=== PATIENT | male | born 1940 | race Caucasian/White ===

== ENCOUNTER 2019-04-19 12:40 | Inpatient (IN) ==
[2019-04-19] MEDS ORDERED: ACETAMINOPHEN 325 MG TABLET PO PRN (12:47)
[2019-04-19] MEDS ORDERED: diphenhydrAMINE CAP 25 MG CAPSULE PO PRN (12:47)
[2019-04-19] MEDS ORDERED: BISACODYL 5 MG TABLET PO PRN (12:47)
[2019-04-19] MEDS ORDERED: ONDANSETRON 4 MG/2 ML VIAL IV PRN (12:47)
[2019-04-19] MEDS ORDERED: MORPHINE 4 MG/1 ML VIAL IV PRN (12:47)
[2019-04-19] MEDS ORDERED: POTASSIUM CHLORIDE 20 MEQ TABLET PO PRN (12:47)
[2019-04-19] MEDS ORDERED: MAGNESIUM SULF RIDER 2 GM in PREMIX 1 EACH IV PRN (12:47)
[2019-04-19] MEDS ORDERED: MAGNESIUM SULF RIDER 4 GM in PREMIX 1 EACH IV PRN (12:47)
[2019-04-19] MEDS ORDERED: ZALEPLON 5 MG CAPSULE PO PRN (12:47)
[2019-04-19] MEDS ORDERED: DOCUSATE SODIUM 100 MG CAPSULE PO PRN (12:47)
[2019-04-19] MEDS ORDERED: guaiFENesin/DM ER 600-30 MG TABLET PO PRN (12:47)
[2019-04-19 16:31] LABS: Basophils % 0.6 % (0.0-0.8); Eosinophils # 0.3 10*3/uL (0.0-0.87); Eosinophils % 3.9 % (0.00-10.9); Hematocrit 40.5 VOL% (42.0-52.0); Hemoglobin 12.2 GM/DL (14.0-18.0); Immature Granulocytes % 0.6 %; Immature Granulocytes Absolute 0.04 #; Lymphocytes # 1.1 10*3/uL (1.4-4.0); Lymphocytes % 15.3 % (21.2-54.2); Mean Corpuscular HGB Conc 30.1 GM/DL (32-36); Mean Corpuscular Volume 94.4 FL (87-102); Monocytes % 9.2 % (1.7-12.7); Neutrophils % 70.4 % (38.7-73.9); Platelet Count 204 T/CUMM (130-400); Red Blood Count 4.29 MC/CUMM (3.8-5.5); Red Cell Distribution Width 15.9 % (9.3-17.3); White Blood Count 7.1 T/CUMM (4-12)
[2019-04-19 16:48] LABS: Albumin 2.8 G/DL (3.4-5.0); Bilirubin,Total 0.5 MG/DL (0.2-1.0); Calcium 9.5 MG/DL (8.5-10.1); Osmolality,Calculated 282.3 MOS/KG (273-304); Total Protein 6.6 G/DL (6.4-8.3)
[2019-04-19 16:55] LABS: PT Patient Result 11.3 SECS
[2019-04-19] MEDS ORDERED: ceFAZolin 1,000 MG in SYRINGE 1 EACH IV ONE (17:17)
[2019-04-19] MEDS ORDERED: ceFAZolin 1,000 MG VIAL IRRIG ONE (17:17)
[2019-04-19] MEDS: ENOXAPARIN 40 MG/0.4 ML SYRINGE SUBCUT SCH (17:34)
[2019-04-19] MEDS: ALBUTEROL 2.5 MG/3 ML NEB RESP TX SCH (20:40)
[2019-04-19] MEDS: BUDESONIDE/FORMOTEROL 160-4.5 INHALER 6 GM INH SCH (21:39)
[2019-04-19] MEDS: METOPROLOL TARTRATE 25 MG TABLET PO SCH (21:40)
[2019-04-20 03:09] LABS: Basophils # 0.1 10*3/uL (0.0-0.2); Basophils % 0.8 % (0.0-0.8); Eosinophils # 0.5 10*3/uL (0.0-0.87); Eosinophils % 5.5 % (0.00-10.9); Hematocrit 36.1 VOL% (42.0-52.0); Immature Granulocytes % 0.5 %; Immature Granulocytes Absolute 0.04 #; Lymphocytes # 0.9 10*3/uL (1.4-4.0); Lymphocytes % 10.7 % (21.2-54.2); Mean Corpuscular HGB Conc 30.5 GM/DL (32-36); Mean Platelet Volume 9.3 FL (9.6-12.0); Monocytes % 9.2 % (1.7-12.7); Neutrophils % 73.3 % (38.7-73.9); Platelet Count 193 T/CUMM (130-400); Red Blood Count 3.84 MC/CUMM (3.8-5.5); White Blood Count 8.5 T/CUMM (4-12)
[2019-04-20 03:40] LABS: Osmolality,Calculated 285.3 MOS/KG (273-304); Thyroid Stimulating Hormone 4.72 uIU/ml (0.358-3.74)
[2019-04-20] MEDS: ALBUTEROL 2.5 MG/3 ML NEB RESP TX SCH (07:57)
[2019-04-20] MEDS ORDERED: ALBUTEROL 1.25 MG/3 ML NEB RESP TX PRN (08:02)
[2019-04-20] MEDS ORDERED: FUROSEMIDE 40 MG TABLET PO SCH (09:00)
[2019-04-20] MEDS ORDERED: LIDOCAINE 1% 20 ML VIAL ONE (10:37)
[2019-04-20] MEDS ORDERED: TISSUE ADHESIVE 1 EACH APPLICATOR TOP ONE (10:37)
[2019-04-20] MEDS ORDERED: HEPARIN/NACL 0.9% 2 UNITS/ML 500 ML IV ONE (10:37)
[2019-04-20] MEDS ORDERED: ceFAZolin 1,000 MG VIAL ONE (10:38)
[2019-04-20] MEDS ORDERED: MIDAZOLAM 2 MG/2 ML VIAL ONE (12:52)
[2019-04-20] MEDS ORDERED: PROPOFOL 200 MG/20 ML VIAL IV ONE (12:53)
[2019-04-20] MEDS ORDERED: GLYCOPYRROLATE 0.4 MG/2 ML VIAL ONE (12:53)
[2019-04-20] MEDS: METOPROLOL TARTRATE 25 MG TABLET PO SCH ×2 (15:32→21:30)
[2019-04-20] MEDS: ROSUVASTATIN 20 MG TABLET PO SCH (15:34)
[2019-04-20] MEDS: NICOTINE 14 MG/24 HR PATCH TRANSDERM SCH (15:34)
[2019-04-20] MEDS: ENOXAPARIN 40 MG/0.4 ML SYRINGE SUBCUT SCH (15:34)
[2019-04-20] MEDS: ASPIRIN EC 81 MG TABLET PO SCH (15:34)
[2019-04-20] MEDS: PANTOPRAZOLE 40 MG TABLET PO SCH (15:34)
[2019-04-20] MEDS: FUROSEMIDE 40 MG/4 ML VIAL IV SCH ×2 (15:35→18:21)
[2019-04-20] MEDS: BUDESONIDE/FORMOTEROL 160-4.5 INHALER 6 GM INH SCH ×2 (15:35→21:31)
[2019-04-20] MEDS: ceFAZolin 1,000 MG in SYRINGE 1 EACH IV SCH (21:30)
[2019-04-21 03:41] LABS: Basophils % 0.4 % (0.0-0.8); Eosinophils # 0.4 10*3/uL (0.0-0.87); Eosinophils % 4.4 % (0.00-10.9); Hemoglobin 11.1 GM/DL (14.0-18.0); Immature Granulocytes % 0.4 %; Immature Granulocytes Absolute 0.04 #; Lymphocytes # 0.9 10*3/uL (1.4-4.0); Lymphocytes % 9.5 % (21.2-54.2); Mean Corpuscular HGB Conc 30.8 GM/DL (32-36); Mean Corpuscular Volume 93.8 FL (87-102); Mean Platelet Volume 9.4 FL (9.6-12.0); Monocytes % 9.2 % (1.7-12.7); Neutrophils % 76.1 % (38.7-73.9); Platelet Count 200 T/CUMM (130-400); Red Blood Count 3.84 MC/CUMM (3.8-5.5); Red Cell Distribution Width 15.7 % (9.3-17.3); White Blood Count 9.9 T/CUMM (4-12)
[2019-04-21 03:58] LABS: Osmolality,Calculated 275.8 MOS/KG (273-304)
[2019-04-21] MEDS: ceFAZolin 1,000 MG in SYRINGE 1 EACH IV SCH (05:09)
[2019-04-21] MEDS ORDERED: METOPROLOL TARTRATE 25 MG TABLET PO SCH (07:49)
[2019-04-21] MEDS: ROSUVASTATIN 20 MG TABLET PO SCH (08:56)
[2019-04-21] MEDS: ASPIRIN EC 81 MG TABLET PO SCH (08:56)
[2019-04-21] MEDS: PANTOPRAZOLE 40 MG TABLET PO SCH (08:57)
[2019-04-21] MEDS: NICOTINE 14 MG/24 HR PATCH TRANSDERM SCH (08:57)
[2019-04-21] MEDS: BUDESONIDE/FORMOTEROL 160-4.5 INHALER 6 GM INH SCH (08:59)
[2019-04-21] MEDS ORDERED: LISINOPRIL 2.5 MG TABLET PO SCH (09:00)
[2019-04-21] MEDS ORDERED: FUROSEMIDE 40 MG TABLET PO SCH (09:00)
[2019-04-21 12:07] VITALS: BP 110/60
[2019-04-21] MEDS ORDERED: MAGNESIUM CHLORIDE 64 MG TABLET PO SCH (13:30)
== END 2019-04-21 15:32 | disposition home or self-care (01) | DRG 227 ==
LOC: N.TELEN
PROVIDERS: ADMIT Internal Medicine Clinical Cardiac Electrophysiology; ATTEND Internal Medicine Clinical Cardiac Electrophysiology

== ENCOUNTER 2019-08-05 11:21 | Inpatient (IN) ==
[2019-08-05] MEDS ORDERED: FUROSEMIDE 40 MG/4 ML VIAL IV STA ×2 (12:29→14:12)
[2019-08-05] MEDS ORDERED: methylPREDNISolone SOD SUC 125 MG/2 ML VIAL IV STA (12:29)
[2019-08-05] MEDS ORDERED: ONDANSETRON 4 MG/2 ML VIAL IV STA (12:29)
[2019-08-05] MEDS ORDERED: ALBUTEROL NEB SOLN 5 MG/ML 20 ML/BOTTLE RESP TX SCH (12:30)
[2019-08-05 12:39] LABS: Basophils % 0.3 % (0.0-0.8); Eosinophils # 0.1 10*3/uL (0.0-0.87); Eosinophils % 0.8 % (0.00-10.9); Hematocrit 36.5 VOL% (42.0-52.0); Hemoglobin 11.4 GM/DL (14.0-18.0); Immature Granulocytes % 0.8 %; Immature Granulocytes Absolute 0.07 #; Lymphocytes # 0.9 10*3/uL (1.4-4.0); Lymphocytes % 10.1 % (21.2-54.2); Mean Corpuscular HGB Conc 31.2 GM/DL (32-36); Mean Corpuscular Volume 91.3 FL (87-102); Mean Platelet Volume 9.7 FL (9.6-12.0); Monocytes % 9.1 % (1.7-12.7); Neutrophils % 78.9 % (38.7-73.9); Platelet Count 238 T/CUMM (130-400); Red Cell Distribution Width 15.4 % (9.3-17.3); White Blood Count 9.2 T/CUMM (4-12)
[2019-08-05 12:44] LABS: INR 1.1; PT Patient Result 11.5 SECS (9.6-12.2)
[2019-08-05 12:52] LABS: Albumin 3.1 G/DL (3.4-5.0); Bilirubin,Total 0.4 MG/DL (0.2-1.0); Calcium 9.3 MG/DL (8.5-10.1); Osmolality,Calculated 288.1 MOS/KG (273-304); Total Protein 6.9 G/DL (6.4-8.3)
[2019-08-05 13:05] LABS: Apearance,Urine CLEAR (Clear); Bilirubin,Urine Negative (Negative); Blood, Urine Negative (Negative); Glucose,Urine (UA) Negative (Negative); Ketones,Urine Negative (Negative); Mucus,Urine Occasional /LPF (Occasional); Nitrite,Urine Negative (Negative); Protein,Urine 30 MG/DL; RBC,Urine 6 /HPF (0-4); Squamous Epithelial Cell,Urine Occasional /HPF (0-10); Urine Color Yellow (Yellow); Urine Specific Gravity 1.017 (1.001-1.035); Urine Urobilinogen < 2.0 EU/DL (0.2-1.0); WBC,Urine 2 /HPF (0-6)
[2019-08-05 13:13] LABS: ABG HCO3 25.3 MMOL/L (20-26); ABG Oxygen Saturation 98.5 % (95-100); ABG PCO2 43.1 MM HG (35-48); ABG PH 7.392 (7.35-7.45); ABG TCO2 23.4 MMOL/L (23-27)
[2019-08-05] MEDS ORDERED: cefTRIAXone 1,000 MG in SODIUM CHLORIDE 0.9% 100 ML IV STA (14:33)
[2019-08-05] MEDS ORDERED: diphenhydrAMINE CAP 25 MG CAPSULE PO PRN (15:19)
[2019-08-05] MEDS ORDERED: ACETAMINOPHEN 325 MG TABLET PO PRN (15:19)
[2019-08-05] MEDS ORDERED: MORPHINE 4 MG/1 ML VIAL IV PRN (15:19)
[2019-08-05] MEDS ORDERED: guaiFENesin/DM ER 600-30 MG TABLET PO PRN (15:19)
[2019-08-05] MEDS ORDERED: ZALEPLON 5 MG CAPSULE PO PRN (15:19)
[2019-08-05] MEDS ORDERED: ONDANSETRON 4 MG/2 ML VIAL IV PRN (15:19)
[2019-08-05] MEDS ORDERED: NICOTINE 21 MG/24 HR PATCH TRANSDERM PRN (15:19)
[2019-08-05] MEDS ORDERED: ALBUTEROL/IPRATROPIUM 3 ML NEB RESP TX SCH (19:00)
[2019-08-05] MEDS ORDERED: ALBUTEROL 0.63 MG/3 ML NEB RESP TX PRN (19:26)
[2019-08-05] MEDS: FUROSEMIDE 40 MG/4 ML VIAL IV SCH (20:58)
[2019-08-05] MEDS: methylPREDNISolone SOD SUC 40 MG/1 ML VIAL IV SCH (20:58)
[2019-08-05] MEDS: ENOXAPARIN 30 MG/0.3 ML SYRINGE SUBCUT SCH (20:59)
[2019-08-05] MEDS: ROSUVASTATIN 20 MG TABLET PO SCH (20:59)
[2019-08-05] MEDS: METOPROLOL TARTRATE 25 MG TABLET PO SCH (20:59)
[2019-08-05] MEDS: BUDESONIDE/FORMOTEROL 160-4.5 INHALER 6 GM INH SCH (21:16)
[2019-08-05] MEDS: AZITHROMYCIN INJ 500 MG in SODIUM CHLORIDE 0.9% 250 ML IV SCH (21:16)
[2019-08-06] MEDS: ALBUTEROL 0.63 MG/3 ML NEB RESP TX SCH ×7 (00:43→23:25)
[2019-08-06 04:34] LABS: Basophils % 0.1 % (0.0-0.8); Hematocrit 36.5 VOL% (42.0-52.0); Hemoglobin 11.5 GM/DL (14.0-18.0); Immature Granulocytes % 0.9 %; Immature Granulocytes Absolute 0.07 #; Lymphocytes # 0.8 10*3/uL (1.4-4.0); Lymphocytes % 9.9 % (21.2-54.2); Mean Corpuscular HGB Conc 31.5 GM/DL (32-36); Mean Corpuscular Volume 90.6 FL (87-102); Mean Platelet Volume 9.8 FL (9.6-12.0); Monocytes % 2.6 % (1.7-12.7); Neutrophils % 86.5 % (38.7-73.9); Platelet Count 259 T/CUMM (130-400); Red Blood Count 4.03 MC/CUMM (3.8-5.5); Red Cell Distribution Width 15.4 % (9.3-17.3); White Blood Count 7.6 T/CUMM (4-12)
[2019-08-06 05:10] LABS: Albumin 3.4 G/DL (3.4-5.0); Bilirubin,Total 0.6 MG/DL (0.2-1.0); Osmolality,Calculated 283.5 MOS/KG (273-304); Risk Ratio 3.24; Thyroid Stimulating Hormone 1.43 uIU/ml (0.358-3.74); Total Protein 7.4 G/DL (6.4-8.3)
[2019-08-06] MEDS: methylPREDNISolone SOD SUC 40 MG/1 ML VIAL IV SCH ×3 (05:59→21:02)
[2019-08-06] MEDS ORDERED: MAGNESIUM SULF RIDER 2 GM in PREMIX 1 EACH IV PRN (06:24)
[2019-08-06] MEDS ORDERED: MAGNESIUM SULF RIDER 4 GM in PREMIX 1 EACH IV PRN (06:24)
[2019-08-06] MEDS ORDERED: POTASSIUM CHLORIDE RIDER 10 MEQ in PREMIX 1 EACH IV PRN (06:24)
[2019-08-06] MEDS ORDERED: PANTOPRAZOLE 40 MG TABLET PO SCH (09:00)
[2019-08-06] MEDS ORDERED: cefTRIAXone 1,000 MG in SYRINGE 1 EACH IV SCH (09:00)
[2019-08-06] MEDS: ACETAMINOPHEN 500 MG TABLET PO SCH (09:14)
[2019-08-06] MEDS: PANTOPRAZOLE 40 MG TABLET PO SCH (09:15)
[2019-08-06] MEDS: METOPROLOL TARTRATE 25 MG TABLET PO SCH ×2 (09:15→21:08)
[2019-08-06] MEDS: BUDESONIDE/FORMOTEROL 160-4.5 INHALER 6 GM INH SCH ×2 (09:15→21:09)
[2019-08-06] MEDS: CLOPIDOGREL 75 MG TABLET PO SCH (09:15)
[2019-08-06] MEDS: LISINOPRIL 2.5 MG TABLET PO SCH (09:15)
[2019-08-06] MEDS: FUROSEMIDE 40 MG/4 ML VIAL IV SCH ×2 (09:16→15:14)
[2019-08-06] MEDS: MAGNESIUM CHLORIDE 64 MG TABLET PO SCH ×2 (11:14→21:08)
[2019-08-06] MEDS: ASPIRIN EC 81 MG TABLET PO SCH (11:14)
[2019-08-06] MEDS: AZITHROMYCIN INJ 500 MG in SODIUM CHLORIDE 0.9% 250 ML IV SCH (15:13)
[2019-08-06] MEDS: ENOXAPARIN 30 MG/0.3 ML SYRINGE SUBCUT SCH (21:00)
[2019-08-06] MEDS: ROSUVASTATIN 20 MG TABLET PO SCH (21:12)
[2019-08-07] MEDS: ALBUTEROL 0.63 MG/3 ML NEB RESP TX SCH ×5 (02:30→19:34)
[2019-08-07] MEDS: ACETAMINOPHEN 500 MG TABLET PO SCH ×2 (03:18→10:35)
[2019-08-07 04:28] LABS: Basophils % 0.1 % (0.0-0.8); Hematocrit 35.8 VOL% (42.0-52.0); Hemoglobin 11.1 GM/DL (14.0-18.0); Immature Granulocytes % 0.9 %; Immature Granulocytes Absolute 0.12 #; Lymphocytes # 0.8 10*3/uL (1.4-4.0); Lymphocytes % 6.1 % (21.2-54.2); Mean Corpuscular Volume 91.3 FL (87-102); Mean Platelet Volume 9.8 FL (9.6-12.0); Monocytes % 4.1 % (1.7-12.7); Neutrophils % 88.8 % (38.7-73.9); Platelet Count 296 T/CUMM (130-400); Red Blood Count 3.92 MC/CUMM (3.8-5.5); Red Cell Distribution Width 15.4 % (9.3-17.3); White Blood Count 13.7 T/CUMM (4-12)
[2019-08-07 04:55] LABS: Albumin 3.1 G/DL (3.4-5.0); Bilirubin,Total 0.4 MG/DL (0.2-1.0); Calcium 9.5 MG/DL (8.5-10.1); Total Protein 6.6 G/DL (6.4-8.3)
[2019-08-07] MEDS: methylPREDNISolone SOD SUC 40 MG/1 ML VIAL IV SCH ×2 (05:07→19:11)
[2019-08-07] MEDS ORDERED: AZITHROMYCIN 250 MG TABLET PO SCH (09:00)
[2019-08-07] MEDS: MAGNESIUM CHLORIDE 64 MG TABLET PO SCH ×2 (09:52→20:27)
[2019-08-07] MEDS: FUROSEMIDE 40 MG/4 ML VIAL IV SCH (09:52)
[2019-08-07] MEDS: CLOPIDOGREL 75 MG TABLET PO SCH (09:53)
[2019-08-07] MEDS: PANTOPRAZOLE 40 MG TABLET PO SCH (09:53)
[2019-08-07] MEDS: BUDESONIDE/FORMOTEROL 160-4.5 INHALER 6 GM INH SCH ×2 (09:53→20:31)
[2019-08-07] MEDS: PIPERACILLIN/TAZOBACTAM 3,375 MG in SODIUM CHLORIDE 0.9% 100 ML IV SCH ×2 (09:57→16:59)
[2019-08-07] MEDS: LISINOPRIL 2.5 MG TABLET PO SCH (10:35)
[2019-08-07] MEDS: METOPROLOL TARTRATE 25 MG TABLET PO SCH ×2 (10:35→20:28)
[2019-08-07] MEDS: ASPIRIN EC 81 MG TABLET PO SCH (12:19)
[2019-08-07] MEDS: ROSUVASTATIN 20 MG TABLET PO SCH (20:27)
[2019-08-07] MEDS: ENOXAPARIN 30 MG/0.3 ML SYRINGE SUBCUT SCH (20:28)
[2019-08-08] MEDS: ALBUTEROL 0.63 MG/3 ML NEB RESP TX SCH ×3 (00:41→07:32)
[2019-08-08] MEDS: PIPERACILLIN/TAZOBACTAM 3,375 MG in SODIUM CHLORIDE 0.9% 100 ML IV SCH ×2 (01:18→08:48)
[2019-08-08 04:56] LABS: Basophils % 0.1 % (0.0-0.8); Hematocrit 35.8 VOL% (42.0-52.0); Hemoglobin 11.4 GM/DL (14.0-18.0); Immature Granulocytes % 1.2 %; Immature Granulocytes Absolute 0.19 #; Lymphocytes # 0.8 10*3/uL (1.4-4.0); Lymphocytes % 5.3 % (21.2-54.2); Mean Corpuscular HGB Conc 31.8 GM/DL (32-36); Mean Corpuscular Volume 89.5 FL (87-102); Mean Platelet Volume 9.7 FL (9.6-12.0); Monocytes % 5.9 % (1.7-12.7); Neutrophils % 87.5 % (38.7-73.9); Platelet Count 308 T/CUMM (130-400); Red Cell Distribution Width 15.2 % (9.3-17.3); White Blood Count 15.2 T/CUMM (4-12)
[2019-08-08] MEDS: methylPREDNISolone SOD SUC 40 MG/1 ML VIAL IV SCH (05:24)
[2019-08-08 05:38] LABS: Alanine Aminotransferase 22 U/L (16-61); Albumin 3.3 G/DL (3.4-5.0); Alkaline Phosphatase 79 U/L (45-117); Aspartate Amino Transferase 18 U/L (0-37); Bilirubin,Total < 0.39 MG/DL (0.2-1.0); Blood Urea Nitrogen 60 MG/DL (7-18); Calcium 9.6 MG/DL (8.5-10.1); Estimated Glom Filtration Rate 28 ML/MIN; Glucose 135 MG/DL (74-106); Osmolality,Calculated 288.1 MOS/KG (273-304); Total Protein 6.6 G/DL (6.4-8.3)
[2019-08-08 07:29] VITALS: BP 97/53
[2019-08-08] MEDS: METOPROLOL TARTRATE 25 MG TABLET PO SCH (08:43)
[2019-08-08] MEDS: LISINOPRIL 2.5 MG TABLET PO SCH (08:43)
[2019-08-08] MEDS: ACETAMINOPHEN 500 MG TABLET PO SCH (08:47)
[2019-08-08] MEDS: MAGNESIUM CHLORIDE 64 MG TABLET PO SCH (08:47)
[2019-08-08] MEDS: CLOPIDOGREL 75 MG TABLET PO SCH (08:48)
[2019-08-08] MEDS: PANTOPRAZOLE 40 MG TABLET PO SCH (08:48)
[2019-08-08] MEDS: BUDESONIDE/FORMOTEROL 160-4.5 INHALER 6 GM INH SCH (08:48)
[2019-08-08] MEDS ORDERED: SODIUM CHLORIDE 0.9% 500 ML IV ONE (09:39)
[2019-08-08] MEDS: ASPIRIN EC 81 MG TABLET PO SCH (13:41)
== END 2019-08-08 13:30 | disposition home health service (06) | DRG 291 ==
LOC: N.EDINP 11:21 → N.ED 11:21 → N.EDINP 16:15 → N.4E 16:23 → SUATTDRO 08-06 10:19
PROVIDERS: ADMIT Internal Medicine; ATTEND Internal Medicine